=== PATIENT | female | born 1990 | race Two or more races ===

== ENCOUNTER 2023-03-16 14:10 | Outpatient (CLI) | payer OTHER | END 2023-03-16 16:00 | disposition home or self-care (01) | LOC: PRENATAL 14:10 | PROVIDERS: ATTEND Obstetrics & Gynecology Maternal & Fetal Medicine | DX: O36.80X0 Pregnancy with inconclusive fetal viability, not applicable or unspecified (principal); Z3A.13 13 weeks gestation of pregnancy ==

== ENCOUNTER 2023-05-03 08:11 | Outpatient (CLI) | payer OTHER | END 2023-05-03 09:10 | disposition home or self-care (01) | LOC: PRENATAL 08:11 | PROVIDERS: ATTEND Obstetrics & Gynecology Maternal & Fetal Medicine | DX: O35.3XX0 Maternal care for (suspected) damage to fetus from viral disease in mother, not applicable or unspecified (principal); O44.00 Complete placenta previa NOS or without hemorrhage, unspecified trimester; O99.280 Endocrine, nutritional and metabolic diseases complicating pregnancy, unspecified trimester; Z3A.20 20 weeks gestation of pregnancy ==

== ENCOUNTER 2023-07-31 09:10 | Outpatient (CLI) | payer OTHER ==
[~2023-07-31 09:10] MED LIST: SYNTHROID75 MCG PO
== END 2023-07-31 09:11 | disposition home or self-care (01) ==
LOC: PRENATAL 09:10
PROVIDERS: ATTEND Obstetrics & Gynecology Maternal & Fetal Medicine
DX: O26.849 Uterine size-date discrepancy, unspecified trimester (principal); O36.8199 Decreased fetal movements, unspecified trimester, other fetus; Z3A.32 32 weeks gestation of pregnancy

== ENCOUNTER 2023-08-28 17:55 | Inpatient (IN) | payer OTHER ==
[~2023-08-28] VITALS: Ht 152.4 cm; Wt 2.7 kg
[2023-08-28 18:46] LABS: HEMOGLOBIN 10.3 g/dL (12.0-15.00); MEAN CELL VOLUME 86.2 fL (80.00-100.00); MEAN CORPUSCULAR HEMOGLOBIN 29.7 pg (27.00-32.0); MEAN CORPUSCULAR HGB CONC 34.4 g/dl (32.0-36.0); PLATELET COUNT 276 K/uL (150-450); RED BLOOD COUNT 3.48 M/uL (4.00-6.00); RED CELL DISTRIBUTION WIDTH 14.4 % (11.5-14.5)
[2023-08-28 18:47] LABS: URINE APPEARANCE Clear; URINE BILIRRUBIN Negative (NEGATIVE); URINE BLOOD Negative; URINE COLOR Yellow; URINE LEUKOCYTE Negative; URINE NITRATE Negative; URINE PROTEIN 30 (NEGATIVE)
[2023-08-28 18:51] LABS: URINE BACTERIA 4730.9 uL (0.0-1933); URINE EPITHELIAL CELLS 22.5 uL (0.0-38.8); URINE RBC 18.9 uL (0.0-20.8); URINE WBC 84.2 uL (0.0-23.2)
[2023-08-28] MEDS ORDERED: PRENATAL TABLE1 EAC1 PO (18:59)
[2023-08-28] MEDS ORDERED: SINGULAIR4 M1 PO (18:59)
[2023-08-28 19:00] LABS: INR < 0.93; PARTIAL THROMBOPLASTIN TIME 25.7 SECONDS (22.0-34.0); PROTHROMBIN TIME 9.8 SECONDS (9.0-11.5)
[2023-08-28] MEDS ORDERED: SYNTHROID100 MCG PO (19:00)
[2023-08-28 19:06] LABS: ALBUMIN 2.6 gm/dL (3.4-5.0); BILIRUBIN TOTAL 0.21 mg/dL (0.3-1.2); CALCIUM 8.6 mg/dL (8.5-10.1); CREATININE SERUM 0.62 mg/dL (0.55-1.02); GFR 110.85; GLOBULINA 3.4 G/DL (2.4-3.5); POTASSIUM 3.75 mEq/L (3.5-5.1)
[2023-08-28 19:27] LABS: URINE GLUCOSE 250 MG/DL (NEGATIVE)
[2023-08-28 19:32] LABS: URINE YEAST NEGATIVE /hpf
[2023-08-29 20:08] LABS: CREATININE URINE 44.3 MG/DL
[2023-08-29 20:16] LABS: CREATINE CLEARANCE 144.2 ML/MIN (97-137); CREATININE SERUM 0.62 mg/dL (0.6-1.0)
[2023-08-30] MEDS ORDERED: LORATADINE10 MG (15:55)
[2023-09-01 08:29] LABS: ALBUMIN 2.3 gm/dL (3.4-5.0); BILIRUBIN TOTAL 0.53 mg/dL (0.3-1.2); CALCIUM 7.9 mg/dL (8.5-10.1); CREATININE SERUM 0.36 mg/dL (0.55-1.02); GFR 207.59; GLOBULINA 2.9 G/DL (2.4-3.5); POTASSIUM 3.67 mEq/L (3.5-5.1); TOTAL PROTEIN 5.2 gm/dL (6.4-8.2)
[2023-09-01 08:50] LABS: HEMATOCRIT 28.8 % (36.0-45.00); MEAN CORPUSCULAR HEMOGLOBIN 30.3 pg (27.00-32.0); MEAN CORPUSCULAR HGB CONC 34.8 g/dl (32.0-36.0); PLATELET COUNT 256 K/uL (150-450); RED BLOOD COUNT 3.31 M/uL (4.00-6.00); RED CELL DISTRIBUTION WIDTH 14.6 % (11.5-14.5)
[2023-09-02] MEDS ORDERED: IBU800 MG PO (13:11)
[2023-09-02] MEDS ORDERED: COLACE100 MG PO (13:12)
[2023-09-02] MEDS ORDERED: SIMETHICONE125 M1 PO (13:12)
== END 2023-09-02 13:47 | disposition home or self-care (01) | DRG 788 ==
LOC: OBS/DEL 17:55 → LDR 08-29 19:38 → O/R 08-31 13:24 → OB/GYN 08-31 15:22
PROVIDERS: Obstetrics & Gynecology; Specialist; ADMIT Student in an Organized Health Care Education/Training Program; ATTEND Student in an Organized Health Care Education/Training Program
PROC: 4A1HXCZ Monitoring of Products of Conception, Cardiac Rate, External Approach (ICD-10-PCS; 2023-08-29)
PROC: 3E0P7VZ Introduction of Hormone into Female Reproductive, Via Natural or Artificial Opening (ICD-10-PCS; 2023-08-30)
PROC: 3E033VJ Introduction of Other Hormone into Peripheral Vein, Percutaneous Approach (ICD-10-PCS; 2023-08-31)
PROC: 10D00Z1 Extraction of Products of Conception, Low, Open Approach (ICD-10-PCS; principal; 2023-08-31 12:00)
DX: O61.0 Failed medical induction of labor (principal); O14.04 Mild to moderate pre-eclampsia, complicating childbirth; Z3A.37 37 weeks gestation of pregnancy; Z37.0 Single live birth; Z20.822 Contact with and (suspected) exposure to COVID-19

== ENCOUNTER 2023-09-04 10:53 | Emergency (ER) | payer OTHER ==
[~2023-09-04] VITALS: Ht 154.9 cm; Wt 87.1 kg
[~2023-09-04 10:53] MED LIST changes: +COLACE100 MG PO; +IBU800 MG PO; +LORATADINE10 MG; +PRENATAL TABLE1 EAC1 PO; +SIMETHICONE125 M1 PO; +SINGULAIR4 M1 PO; +SYNTHROID100 MCG PO
[2023-09-04 14:12] LABS: HEMATOCRIT 29.3 % (36.0-45.00); HEMOGLOBIN 9.8 g/dL (12.0-15.00); MEAN CELL VOLUME 88.9 fL (80.00-100.00); MEAN CORPUSCULAR HEMOGLOBIN 29.6 pg (27.00-32.0); MEAN CORPUSCULAR HGB CONC 33.3 g/dl (32.0-36.0); PH,URINE 7.5 (5.0-8.0); PLATELET COUNT 405 K/uL (150-450); RED CELL DISTRIBUTION WIDTH 14.8 % (11.5-14.5); URINE APPEARANCE Clear; URINE BILIRRUBIN Negative (NEGATIVE); URINE BLOOD Moderate; URINE COLOR Yellow; URINE GLUCOSE Negative (NEGATIVE); URINE LEUKOCYTE Negative; URINE NITRATE Negative; URINE PROTEIN Negative (NEGATIVE)
[2023-09-04 14:16] LABS: URINE EPITHELIAL CELLS 10.8 uL (0.0-38.8); URINE RBC 34.4 uL (0.0-20.8); URINE WBC 10.8 uL (0.0-23.2)
[2023-09-04 14:34] LABS: CALCIUM 8.9 mg/dL (8.5-10.1); CREATININE SERUM 0.6 mg/dL (0.55-1.02); GFR 115.13; POTASSIUM 3.84 mEq/L (3.5-5.1)
[2023-09-04] MEDS ORDERED: LABETALOL HCL100 MG PO (15:42)
== END 2023-09-04 15:58 | disposition home or self-care (01) ==
LOC: ER 10:54
PROVIDERS: General Practice
DX: I10 Essential (primary) hypertension (principal); E03.9 Hypothyroidism, unspecified; Z91.013 Allergy to seafood